=== PATIENT | male | born 1940 | race Caucasian/White ===

== ENCOUNTER 2023-11-02 16:52 | Inpatient (IN) ==
[2023-11-02] MEDS ORDERED: NS 250 ML IV 25 ML IV PRN (16:57)
[2023-11-02 21:00] VITALS: BMI 31.5
[2023-11-02 21:44] LABS: BASOPHILS % (AUTO) 0.3 % (0.2-1.0); EOSINOPHILS # (AUTO) 0.3 x10^3/uL (0.0-0.2); EOSINOPHILS % (AUTO) 2.8 % (0.9-2.9); HEMATOCRIT 35.6 % (42.0-54.0); HEMOGLOBIN 11.8 g/dL (13.5-18.0); LYMPHOCYTES # (AUTO) 0.8 X10^3/uL (1.3-2.9); LYMPHOCYTES % (AUTO) 7.9 % (21.0-51.0); MEAN CORPUSCULAR HEMOGLOBIN 29.9 pg (27.0-34.0); MEAN CORPUSCULAR HGB CONC 33.1 g/dL (33.0-35.0); MEAN CORPUSCULAR VOLUME 90.4 fL (80.0-100.0); MEAN PLATELET VOLUME 7.5 fL (7.4-11.0); MONOCYTES # (AUTO) 0.5 x10^3/uL (0.3-0.8); MONOCYTES % (AUTO) 4.7 % (0.0-13.0); NEUTROPHILS # (AUTO) 8.1 x10^3/uL (2.2-4.8); NEUTROPHILS % (AUTO) 84.3 % (42.0-75.0); PLATELET COUNT 211 X10^3/uL (150.0-450.0); RED BLOOD COUNT 3.94 X10^6/uL (4.7-6.0); RED CELL DISTRIBUTION WIDTH 15.3 % (11.6-16.5); WHITE BLOOD COUNT 9.6 X10^3/uL (3.6-10.0)
[2023-11-02] MEDS: D5 1/2 NS 1,000 ML 1,000 ML IV SCH (21:47)
[2023-11-02] MEDS: NovoLIN R (or HumuLIN R) SUBCUT PRN (21:48)
[2023-11-02 21:54] LABS: ALBUMIN 2.1 g/dL (3.4-5.0); CALCIUM 8.7 mg/dL (8.5-10.1); CARBON DIOXIDE 22.3 mmol/L (21-32); COR CA(FOR HYPOALB) 10.2 mg/dL (8.5-10.1); CREATININE 3.08 mg/dL (0.70-1.30); POTASSIUM 4.2 mmol/L (3.5-5.1); TOTAL PROTEIN 6.5 g/dL (6.4-8.2)
[2023-11-02] MEDS: ZOSYN VIAL 3.375 GRAMS 3.375 G in NS 100 ML IV 100 ML IV SCH (22:12)
[2023-11-03 05:35] LABS: BASOPHILS % (AUTO) 0.4 % (0.2-1.0); EOSINOPHILS # (AUTO) 0.3 x10^3/uL (0.0-0.2); EOSINOPHILS % (AUTO) 3.1 % (0.9-2.9); HEMATOCRIT 33.9 % (42.0-54.0); HEMOGLOBIN 11.2 g/dL (13.5-18.0); LYMPHOCYTES # (AUTO) 0.7 X10^3/uL (1.3-2.9); LYMPHOCYTES % (AUTO) 7.2 % (21.0-51.0); MEAN CORPUSCULAR HEMOGLOBIN 29.6 pg (27.0-34.0); MEAN CORPUSCULAR HGB CONC 32.9 g/dL (33.0-35.0); MEAN CORPUSCULAR VOLUME 89.9 fL (80.0-100.0); MEAN PLATELET VOLUME 7.2 fL (7.4-11.0); MONOCYTES # (AUTO) 0.6 x10^3/uL (0.3-0.8); MONOCYTES % (AUTO) 6.1 % (0.0-13.0); NEUTROPHILS # (AUTO) 7.8 x10^3/uL (2.2-4.8); NEUTROPHILS % (AUTO) 83.2 % (42.0-75.0); PLATELET COUNT 218 X10^3/uL (150.0-450.0); RED BLOOD COUNT 3.77 X10^6/uL (4.7-6.0); WHITE BLOOD COUNT 9.4 X10^3/uL (3.6-10.0)
[2023-11-03 05:45] LABS: ALBUMIN 1.9 g/dL (3.4-5.0); CALCIUM 8.5 mg/dL (8.5-10.1); CARBON DIOXIDE 23.6 mmol/L (21-32); COR CA(FOR HYPOALB) 10.2 mg/dL (8.5-10.1); POTASSIUM 3.9 mmol/L (3.5-5.1)
[2023-11-03] MEDS: HIBICLENS WASH EXT ONE (06:15)
--- NOTE | 2023-11-03 07:53 | EKG ---
Test Reason : scheduled surgery Blood Pressure : */* mmHG Vent. Rate : 85 BPM Atrial Rate : 85 BPM P-R Int : 166 ms QRS Dur : 140 ms QT Int : 416 ms P-R-T Axes : 53 -35 2 degrees QTc Int : 495 ms Normal sinus rhythm Left axis deviation Right bundle branch block Abnormal ECG No previous ECGs available Confirmed by Wilder Parekh MD ([id number] on 11/03/2023 6:27:44 PM Referred By: Confirmed By: Wilder Parekh MD
[2023-11-03] MEDS: NS 1,000 ML IV 1,000 ML ONE ×2 (08:09→18:02)
[2023-11-03] MEDS: KETAMINE HCL ONE (08:31)
[2023-11-03] MEDS: FENTANYL VIAL INJ 100 mcg ONE (08:31)
[2023-11-03] MEDS ORDERED: SUPRANE ONE (08:31)
[2023-11-03] MEDS: ZOFRAN INJ 4 MG VIAL ONE ×2 (08:31→11:59)
[2023-11-03] MEDS ORDERED: XYLOCAINE 2 % (PLAIN) ONE (08:31)
[2023-11-03] MEDS: BRIDION ONE (08:31)
[2023-11-03] MEDS: ZEMURON 100 MG VIAL ONE (08:31)
[2023-11-03] MEDS: VERSED ONE (08:31)
[2023-11-03] MEDS: AMIDATE INJ 40 MG VIAL ONE (08:31)
[2023-11-03] MEDS: PEPCID 20 MG VIAL ONE (08:31)
[2023-11-03] MEDS: BACTROBAN TOPICAL OINT ONE (08:55)
[2023-11-03] MEDS ORDERED: BARHEMSYS INJ IVP PRN (09:23)
[2023-11-03] MEDS ORDERED: BENADRYL INJ 50 MG VIAL IVP PRN (09:23)
[2023-11-03] MEDS ORDERED: REGLAN INJ 10 MG VIAL IVP PRN (09:23)
[2023-11-03] MEDS ORDERED: DILAUDID INJ IVP PRN (09:23)
[2023-11-03] MEDS ORDERED: ZOFRAN INJ 4 MG VIAL IVP PRN (09:23)
[2023-11-03] MEDS: MORPHINE SULFATE INJ 2 MG INJ IVP PRN (10:42)
[2023-11-03] MEDS ORDERED: LEVAQUIN PREMIX IV 750 MG 750 MG/150 ML BAG IV SCH ×2 (11:00)
[2023-11-03] MEDS ORDERED: LOVENOX INJ 30 MG SYR SC SCH (11:00)
[2023-11-03] MEDS ORDERED: MORPHINE SULFATE INJ 2 MG INJ IVP PRN (11:17)
--- NOTE | 2023-11-03 11:18 | RAD ---
EXAM:AP chestHISTORY:Preop appendicitisCOMPARISON:NoneFINDINGS:Hear t size normal. The right lung is clear. The left diaphragm is indistinct; parenchymal density in the left lower lobe may be present. Extensive surgical hardware fixation is noted in the spine.IMPRESSION:No definite abnormality. However, follow-up suggested to further evaluate possible abnormality in the left lower lung; there is no prior exam currently available for comparison.THIS IS AN ELECTRONICALLY VERIFIED FINAL REPORT11/03/2023 11:14 AM - Electronically signed by Shaun Orellana MD
[2023-11-03] MEDS: MORPHINE SULFATE INJ 2 MG INJ IVP ONE (11:58)
[2023-11-03] MEDS: ZOFRAN INJ 4 MG VIAL IVP PRN (12:07)
[2023-11-03] MEDS: LOVENOX INJ 40 MG SYR SC SCH (12:17)
[2023-11-03] MEDS: LEVAQUIN PREMIX IV 750 MG 750 MG/150 ML BAG IV SCH (12:20)
[2023-11-03] MEDS: DILAUDID INJ IVP PRN (16:00)
[2023-11-03] MEDS: TYLENOL 325 MG TAB PO PRN (17:01)
[2023-11-03] MEDS: SNACK - Diabetic Appropriate PO SCH (20:49)
[2023-11-03] MEDS: PROTONIX INJ 40 MG VIAL IVP SCH (21:09)
[2023-11-03] MEDS: LOPRESSOR TAB 50 MG PO SCH (21:09)
[2023-11-03] MEDS: NS 1,000 ML IV 1,000 ML IV SCH (21:22)
[2023-11-04 05:33] LABS: BASOPHILS % (AUTO) 0.3 % (0.2-1.0); EOSINOPHILS # (AUTO) 0.1 x10^3/uL (0.0-0.2); EOSINOPHILS % (AUTO) 1.2 % (0.9-2.9); HEMATOCRIT 33.3 % (42.0-54.0); LYMPHOCYTES # (AUTO) 0.5 X10^3/uL (1.3-2.9); LYMPHOCYTES % (AUTO) 8.4 % (21.0-51.0); MEAN CORPUSCULAR HEMOGLOBIN 29.8 pg (27.0-34.0); MEAN CORPUSCULAR VOLUME 90.2 fL (80.0-100.0); MEAN PLATELET VOLUME 7.4 fL (7.4-11.0); MONOCYTES # (AUTO) 0.4 x10^3/uL (0.3-0.8); MONOCYTES % (AUTO) 6.1 % (0.0-13.0); NEUTROPHILS # (AUTO) 5.5 x10^3/uL (2.2-4.8); PLATELET COUNT 185 X10^3/uL (150.0-450.0); RED BLOOD COUNT 3.69 X10^6/uL (4.7-6.0); RED CELL DISTRIBUTION WIDTH 15.3 % (11.6-16.5); WHITE BLOOD COUNT 6.5 X10^3/uL (3.6-10.0)
[2023-11-04 05:51] LABS: ALBUMIN 1.6 g/dL (3.4-5.0); CALCIUM 8.4 mg/dL (8.5-10.1); CARBON DIOXIDE 21.7 mmol/L (21-32); COR CA(FOR HYPOALB) 10.3 mg/dL (8.5-10.1); CREATININE 3.35 mg/dL (0.70-1.30); POTASSIUM 4.5 mmol/L (3.5-5.1); TOTAL PROTEIN 5.5 g/dL (6.4-8.2)
[2023-11-04] MEDS: NORCO 5/325 MG TAB PO PRN (08:52)
[2023-11-04] MEDS: FLOMAX PO SCH (08:53)
[2023-11-04] MEDS ORDERED: LOVENOX INJ 40 MG SYR SC SCH (09:00)
--- NOTE | 2023-11-04 09:10 | DR.CONSULT ---
CONSULT Consultation for Day of: Date: 11/03/23 Chief Complaint Chief Complaint: appendicitis Allergies Allergies Allergy/AdvReac Type Severity Reaction Status Date / Time No Known Allergies Allergy Verified 11/02/23 20:07 History of Present Illness History of Present Illness: Mr Cardenas is a 83y/o male who was admitted for acute appendicitis. He was evaluated by Dr Chawla and underwent appendectomy. He is currently on Zosyn + Levaquin. He is on clears. Medicine was consulted for management. He is currently doing well, pain is well-controlled. Labs/imaging: -WBC 9.4 Hgb 11.2 BUN/Cr: 47/3.0 Plan: continue diet as per surgery. Continue IVF and pain control. Continue IV antibiotics. Resume home medications. Continue SSI, change fluids to NS. Replace electrolytes as per protocol. Follow surgery recommendations. Monitor AM labs. Past Surgical History Surgical History: Other Family History Family Medical History: Diabetes Mellitus, Heart Failure and Hypertension Social History Does patient currently use any type of tobacco product: No Type of Tobacco Use: None Does any household member use tobacco: No Alcohol Use: None Drug Use: None Medications Home Medications: No Known Allergies Allergy (Verified 11/02/23 20:07) CONTINUE taking the following medications dapagliflozin propanediol 10 mg tablet (Farxiga) 10 mg PO QDAY 11/03/23 [History] ergocalciferol (vitamin D2) 1,250 mcg (50,000 unit) capsule 1,250 mcg PO QWEEK 11/03/23 [History] furosemide 40 mg tablet 40 mg PO BID 11/03/23 [History] glimepiride 4 mg tablet 4 mg PO BID 11/03/23 [History] hydrocodone 5 mg-acetaminophen 325 mg tablet 1 tab PO Q12H PRN 11/03/23 [History] insulin detemir U-100 100 unit/mL (3 mL) subcutaneous pen (Levemir FlexPen) 80 unit subcut QPM 11/03/23 [History] insulin lispro 100 unit/mL subcutaneous pen 10 unit subcut QPM 11/03/23 [History] metoprolol tartrate 50 mg tablet 50 mg PO BID 11/03/23 [History] midodrine 5 mg tablet 5 mg PO TID 11/03/23 [History] simvastatin 40 mg tablet 40 mg PO QDAY 11/03/23 [History] sitagliptin phosphate 50 mg tablet (Januvia) 50 mg PO QDAY 11/03/23 [History] tamsulosin 0.4 mg capsule 0.8 mg PO QDAY 11/03/23 [History] Review of Systems Constitutional: No Symptoms Reported Respiratory: No Symptoms Reported Cardiovascular: No Symptoms Reported Gastrointestinal: Abdominal Pain Genitourinary: No Symptoms Reported Musculoskeletal: No Symptoms Reported Skin: No Symptoms Reported Neurological: No Symptoms Reported Physical Exam Vital Signs: Vital Signs Temperature 98.5 F Temperature 98.1 F Temperature 98.4 F Temperature 98.2 F Temperature 98.0 F Temperature 98.0 F Pulse Rate [Right Radial] 105 Pulse Rate [Right Radial] 93 Pulse Rate [Right Radial] 81 Pulse Rate [Right Radial] 78 Pulse Rate [Right Radial] 78 Pulse Rate [Right Radial] 79 Pulse Rate 80 Pulse Rate 79 Pulse Rate 78 Pulse Rate 79 Pulse Rate 79 Pulse Rate 79 Pulse Rate 79 Respiratory Rate 18 Respiratory Rate 20 Respiratory Rate 20 Respiratory Rate 20 Respiratory Rate 20 Respiratory Rate 20 Respiratory Rate 20 Respiratory Rate 20 Respiratory Rate 20 Respiratory Rate 20 Respiratory Rate 18 Respiratory Rate 18 Respiratory Rate 18 Respiratory Rate 20 Respiratory Rate 20 Respiratory Rate 20 Respiratory Rate 20 Blood Pressure [Right Arm] 168/66 Blood Pressure [Right Arm] 135/94 Blood Pressure [Right Arm] 185/80 Blood Pressure [Right Arm] 171/78 Blood Pressure [Right Arm] 150/72 Blood Pressure [Right Arm] 186/80 Blood Pressure 169/71 Blood Pressure 169/70 Blood Pressure 146/67 Blood Pressure 164/69 Blood Pressure 153/67 Blood Pressure 139/63 Blood Pressure 134/72 O2 Sat by Pulse Oximetry 98 O2 Sat by Pulse Oximetry 98 O2 Sat by Pulse Oximetry 98 O2 Sat by Pulse Oximetry 99 O2 Sat by Pulse Oximetry 99 O2 Sat by Pulse Oximetry 97 O2 Sat by Pulse Oximetry 97 O2 Sat by Pulse Oximetry 97 O2 Sat by Pulse Oximetry 97 O2 Sat by Pulse Oximetry 99 O2 Sat by Pulse Oximetry 99 O2 Sat by Pulse Oximetry 98 O2 Sat by Pulse Oximetry 98 Oriented: Normal Eyes: Normal Throat: Normal Respiratory: Clear Throughout Cardiovascular: Normal Auscultation: Bowel Sounds: Normal Tenderness: RLQ and Mild Skin: Normal Musculoskeletal: Normal Psychiatric: Normal Mood Description: Calm Affect: Normal Speech Pattern: Clear Plan (1) Acute appendicitis: Status: Acute Qualifiers: Acute appendicitis type: unspecified acute appendicitis type Qualified Code(s): K35.80 - Unspecified acute appendicitis (2) Type 2 diabetes mellitus: Status: Acute Qualifiers: Diabetes mellitus complication status: with hyperglycemia Diabetes mellitus snf insulin use: with intermediate accountant use Qualified Code(s): E11.65 - Type 2 diabetes mellitus with hyperglycemia; Z79.4 - residential (current) use of insulin (3) Dehydration: Status: Acute
--- NOTE | 2023-11-04 10:26 | DR.PROGNOT ---
HOSPITAL PROGRESS NOTE Progress Note for Day of: Progress Note Date: 11/04/23 Chief Complaint Chief Complaint: Postoperative laparoscopic appendectomy day 1 Doing very well with less abdominal pain, no nausea or vomiting, tolerating clear liquid well. Moderate drainage in FREDDIE drain. WBC 6.5, normal electrolytes, BUN 43 and creatinine 3.35. Temperature 97.7 Abdomen is soft full with hypoactive bowel sounds. Past Medical Family Social History Allergies: Allergies No Known Allergies Allergy (Verified 11/02/23 20:07) Vital Signs Vital Signs: Vital Signs Temperature 97.5 F Temperature 97.7 F Pulse Rate [Right Radial] 75 Pulse Rate [Right Radial] 69 Respiratory Rate 20 Respiratory Rate 19 Respiratory Rate 20 Blood Pressure [Right Arm] 154/67 Blood Pressure [Right Arm] 143/65 O2 Sat by Pulse Oximetry 97 O2 Sat by Pulse Oximetry 96 Physical Exam Oriented: Normal Eyes: Normal Throat: Normal Cardiovascular: Normal GI:Auscultation: Normal GI: Tenderness: RLQ and Mild Skin: Normal Musculoskeletal: Normal Psychiatric: Normal Mood Description: Calm Affect: Normal Speech Pattern: Clear and Appropriate Laboratory and Diagnostics 11/04/23 05:15 11/04/23 05:15 Labs: Laboratory WBC 6.5 X10^3/uL (3.6-10.0) 11/04/23 05:15 RBC 3.69 X10^6/uL (4.7-6.0) L 11/04/23 05:15 Hgb 11.0 g/dL (13.5-18.0) L 11/04/23 05:15 Hct 33.3 % (42.0-54.0) L 11/04/23 05:15 MCV 90.2 fL (80.0-100.0) 11/04/23 05:15 MCH 29.8 pg (27.0-34.0) 11/04/23 05:15 MCHC 33.0 g/dL (33.0-35.0) 11/04/23 05:15 RDW 15.3 % (11.6-16.5) 11/04/23 05:15 Plt Count 185 X10^3/uL (150.0-450.0) 11/04/23 05:15 MPV 7.4 fL (7.4-11.0) 11/04/23 05:15 Neut % (Auto) 84.0 % (42.0-75.0) H 11/04/23 05:15 Lymph % (Auto) 8.4 % (21.0-51.0) L 11/04/23 05:15 [place] % (Auto) 6.1 % (0.0-13.0) 11/04/23 05:15 Eos % (Auto) 1.2 % (0.9-2.9) 11/04/23 05:15 Baso % (Auto) 0.3 % (0.2-1.0) 11/04/23 05:15 Neut # (Auto) 5.5 x10^3/uL (2.2-4.8) H 11/04/23 05:15 Lymph # (Auto) 0.5 X10^3/uL (1.3-2.9) L 11/04/23 05:15 [place] # (Auto) 0.4 x10^3/uL (0.3-0.8) 11/04/23 05:15 Eos # (Auto) 0.1 x10^3/uL (0.0-0.2) 11/04/23 05:15 Baso # (Auto) 0.0 X10^3/uL (0.0-0.1) 11/04/23 05:15 Absolute Nucleated RBC 0.0 /100WBC 11/04/23 05:15 Sodium 136 mmol/L (136-145) 11/04/23 05:15 Corrected Sodium 139 mmol/L (136-145) 11/04/23 05:15 Potassium 4.5 mmol/L (3.5-5.1) 11/04/23 05:15 Chloride 106 mmol/L (98-107) 11/04/23 05:15 Carbon Dioxide 21.7 mmol/L (21-32) 11/04/23 05:15 BUN 43 mg/dL (7-18) H 11/04/23 05:15 Creatinine 3.35 mg/dL (0.70-1.30) H 11/04/23 05:15 Est GFR (MDRD) Af Amer 23 (>60) L 11/04/23 05:15 Est GFR (MDRD) Non-Af 19 (>60) L 11/04/23 05:15 Glucose 211 mg/dL (65-99) H 11/04/23 05:15 POC Glucose (mg/dL) 181 mg/dL (65-99) H 11/04/23 05:22 Calcium 8.4 mg/dL (8.5-10.1) L 11/04/23 05:15 Corrected Calcium 10.3 mg/dL (8.5-10.1) H 11/04/23 05:15 Total Bilirubin 0.30 mg/dL (0.2-1.0) 11/04/23 05:15 AST 17 Units/L (15-37) 11/04/23 05:15 ALT 18 Units/L (12-78) 11/04/23 05:15 Alkaline Phosphatase 46 Units/L (46-116) 11/04/23 05:15 Total Protein 5.5 g/dL (6.4-8.2) L 11/04/23 05:15 Albumin 1.6 g/dL (3.4-5.0) L 11/04/23 05:15 Globulin 3.9 g/dL (2.5-4.5) 11/04/23 05:15 Albumin/Globulin Ratio 0.4 Ratio (1.1-2.1) L 11/04/23 05:15 Assessment and Plan 1: Acute gangrenous appendicitis with perforation and abscess formation right lower quadrant, status post appendectomy and drainage. Same postoperative care, out of bed, incentive spirometer, DVT prophylaxis, IV fluid and IV antibiotics. Full liquid diet
--- NOTE | 2023-11-04 11:18 | PCM.PROG ---
Progress Note Progress Note for Day of Date of Exam: 11/04/23 Subjective Subjective: Mr Cardenas is a 83y/o male s/p appendectomy. He is currently on Zosyn + Levaquin. Medicine was consulted for management. He is currently doing well, pain is well-controlled. Yesterday, he did spike a fever. Blood cultures pending. Labs/imaging: -WBC 6.5, Hgb 11, Plt 185, -Na 136, K 4.5, Creatinine 3.35, Glucose 211 Plan: continue diet as per surgery advancing to full liquid. Continue IVF and pain control. Continue IV antibiotics. Home medications have been resumed. Continue SSI. Replace electrolytes as per protocol. Follow surgery recommendations. Will stop levaquin. Monitor AM labs. Past Medical Family Social History Allergies: Allergies No Known Allergies Allergy (Verified 11/02/23 20:07) Review of Systems ROS changes noted: see HPI Vital Signs and I&O's Vital Signs: Vital Signs Temperature 97.5 F Temperature 97.7 F Pulse Rate [Right Radial] 75 Pulse Rate [Right Radial] 69 Respiratory Rate 20 Respiratory Rate 19 Respiratory Rate 20 Blood Pressure [Right Arm] 154/67 Blood Pressure [Right Arm] 143/65 O2 Sat by Pulse Oximetry 97 O2 Sat by Pulse Oximetry 96 Intake and Output: Intake & Output 11/01/23 11/02/23 11/03/23 11/04/23 23:59 23:59 23:59 23:59 Intake Total 222 / 222 3163 / 3163 740 / 740 Output Total 1978 / 1978 50 / 50 Balance 222 / 222 1184 / 1184 690 / 690 Physical Exam Oriented: Normal Eyes: Normal Throat: Normal Respiratory: Normal Cardiovascular: Normal Auscultation: Bowel Sounds: Normal Tenderness: RLQ and Mild Skin: Normal Musculoskeletal: Normal Psychiatric: Normal Mood Description: Calm Affect: Normal Speech Pattern: Clear and Appropriate Laboratory and Diagnostics 11/04/23 05:15 11/04/23 05:15 Labs: Laboratory WBC 6.5 X10^3/uL (3.6-10.0) 11/04/23 05:15 RBC 3.69 X10^6/uL (4.7-6.0) L 11/04/23 05:15 Hgb 11.0 g/dL (13.5-18.0) L 11/04/23 05:15 Hct 33.3 % (42.0-54.0) L 11/04/23 05:15 MCV 90.2 fL (80.0-100.0) 11/04/23 05:15 MCH 29.8 pg (27.0-34.0) 11/04/23 05:15 MCHC 33.0 g/dL (33.0-35.0) 11/04/23 05:15 RDW 15.3 % (11.6-16.5) 11/04/23 05:15 Plt Count 185 X10^3/uL (150.0-450.0) 11/04/23 05:15 MPV 7.4 fL (7.4-11.0) 11/04/23 05:15 Neut % (Auto) 84.0 % (42.0-75.0) H 11/04/23 05:15 Lymph % (Auto) 8.4 % (21.0-51.0) L 11/04/23 05:15 [place] % (Auto) 6.1 % (0.0-13.0) 11/04/23 05:15 Eos % (Auto) 1.2 % (0.9-2.9) 11/04/23 05:15 Baso % (Auto) 0.3 % (0.2-1.0) 11/04/23 05:15 Neut # (Auto) 5.5 x10^3/uL (2.2-4.8) H 11/04/23 05:15 Lymph # (Auto) 0.5 X10^3/uL (1.3-2.9) L 11/04/23 05:15 [place] # (Auto) 0.4 x10^3/uL (0.3-0.8) 11/04/23 05:15 Eos # (Auto) 0.1 x10^3/uL (0.0-0.2) 11/04/23 05:15 Baso # (Auto) 0.0 X10^3/uL (0.0-0.1) 11/04/23 05:15 Absolute Nucleated RBC 0.0 /100WBC 11/04/23 05:15 Sodium 136 mmol/L (136-145) 11/04/23 05:15 Corrected Sodium 139 mmol/L (136-145) 11/04/23 05:15 Potassium 4.5 mmol/L (3.5-5.1) 11/04/23 05:15 Chloride 106 mmol/L (98-107) 11/04/23 05:15 Carbon Dioxide 21.7 mmol/L (21-32) 11/04/23 05:15 BUN 43 mg/dL (7-18) H 11/04/23 05:15 Creatinine 3.35 mg/dL (0.70-1.30) H 11/04/23 05:15 Est GFR (MDRD) Af Amer 23 (>60) L 11/04/23 05:15 Est GFR (MDRD) Non-Af 19 (>60) L 11/04/23 05:15 Glucose 211 mg/dL (65-99) H 11/04/23 05:15 POC Glucose (mg/dL) 181 mg/dL (65-99) H 11/04/23 05:22 Calcium 8.4 mg/dL (8.5-10.1) L 11/04/23 05:15 Corrected Calcium 10.3 mg/dL (8.5-10.1) H 11/04/23 05:15 Total Bilirubin 0.30 mg/dL (0.2-1.0) 11/04/23 05:15 AST 17 Units/L (15-37) 11/04/23 05:15 ALT 18 Units/L (12-78) 11/04/23 05:15 Alkaline Phosphatase 46 Units/L (46-116) 11/04/23 05:15 Total Protein 5.5 g/dL (6.4-8.2) L 11/04/23 05:15 Albumin 1.6 g/dL (3.4-5.0) L 11/04/23 05:15 Globulin 3.9 g/dL (2.5-4.5) 11/04/23 05:15 Albumin/Globulin Ratio 0.4 Ratio (1.1-2.1) L 11/04/23 05:15 Plan (1) Acute appendicitis: Status: Acute Qualifiers: Acute appendicitis type: unspecified acute appendicitis type Qualified Code(s): K35.80 - Unspecified acute appendicitis (2) Type 2 diabetes mellitus: Status: Acute Qualifiers: Diabetes mellitus ad terminal makeup operator insulin use: with chcf use Diabetes mellitus complication status: with hyperglycemia Qualified Code(s): E11.65 - Type 2 diabetes mellitus with hyperglycemia; Z79.4 - nursing home (current) use of insulin (3) Dehydration: Status: Acute
[2023-11-04] MEDS ORDERED: NORCO 5/325 MG TAB PO PRN (12:26)
[2023-11-05] MEDS: NORCO 10/325 TAB PO PRN (00:23)
[2023-11-05 06:17] LABS: BASOPHILS # (AUTO) 0.1 X10^3/uL (0.0-0.1); BASOPHILS % (AUTO) 0.7 % (0.2-1.0); EOSINOPHILS # (AUTO) 0.5 x10^3/uL (0.0-0.2); LYMPHOCYTES # (AUTO) 1.7 X10^3/uL (1.3-2.9); LYMPHOCYTES % (AUTO) 11.9 % (21.0-51.0); MEAN CORPUSCULAR VOLUME 90.1 fL (80.0-100.0)
[2023-11-05 06:20] LABS: EOSINOPHILS % (AUTO) 3.2 % (0.9-2.9); HEMATOCRIT 30.6 % (42.0-54.0); HEMOGLOBIN 10.1 g/dL (13.5-18.0); MEAN CORPUSCULAR HEMOGLOBIN 29.6 pg (27.0-34.0); MEAN CORPUSCULAR HGB CONC 32.8 g/dL (33.0-35.0); MEAN PLATELET VOLUME 8.2 fL (7.4-11.0); MONOCYTES # (AUTO) 0.8 x10^3/uL (0.3-0.8); NEUTROPHILS # (AUTO) 10.9 x10^3/uL (2.2-4.8); NEUTROPHILS % (AUTO) 78.2 % (42.0-75.0); PLATELET COUNT 218 X10^3/uL (150.0-450.0)
[2023-11-05 06:28] LABS: ALBUMIN 1.8 g/dL (3.4-5.0); CALCIUM 8.5 mg/dL (8.5-10.1); CARBON DIOXIDE 21.8 mmol/L (21-32); COR CA(FOR HYPOALB) 10.3 mg/dL (8.5-10.1); CREATININE 3.15 mg/dL (0.70-1.30); POTASSIUM 4.2 mmol/L (3.5-5.1)
[2023-11-05 06:50] LABS: WHITE BLOOD COUNT 16.3 X10^3/uL (3.6-10.0)
[2023-11-05 06:56] LABS: PLATELET MORPHOLOGY COMMENT NORMAL (NORMAL)
--- NOTE | 2023-11-05 10:03 | DR.PROGNOT ---
HOSPITAL PROGRESS NOTE Progress Note for Day of: Progress Note Date: 11/05/23 Chief Complaint Chief Complaint: Postoperative laparoscopic appendectomy day 2 Doing very well with less abdominal pain, no nausea or vomiting, tolerating clear liquid well. Moderate drainage in FREDDIE drain. WBC 16.3, normal electrolytes, BUN 37 and creatinine 3.45. Temperature 97.7 Abdomen is soft full with hypoactive bowel sounds. Past Medical Family Social History Allergies: Allergies No Known Allergies Allergy (Verified 11/02/23 20:07) Review Of Systems Changes in ROS: see HPI Vital Signs Vital Signs: Vital Signs Temperature 98.3 F Pulse Rate [Right Radial] 72 Respiratory Rate 18 Blood Pressure [Right Arm] 178/64 O2 Sat by Pulse Oximetry 92 Physical Exam Oriented: Normal Eyes: Normal Throat: Normal Respiratory: Normal Cardiovascular: Normal GI:Auscultation: Normal GI: Tenderness: RLQ and Mild Skin: Normal Musculoskeletal: Normal Psychiatric: Normal Mood Description: Calm Affect: Normal Speech Pattern: Clear and Appropriate Laboratory and Diagnostics 11/05/23 05:18 11/05/23 05:18 Labs: Laboratory WBC 16.3 X10^3/uL (3.6-10.0) H D 11/05/23 05:18 RBC 3.40 X10^6/uL (4.7-6.0) L 11/05/23 05:18 Hgb 10.1 g/dL (13.5-18.0) L 11/05/23 05:18 Hct 30.6 % (42.0-54.0) L 11/05/23 05:18 MCV 90.1 fL (80.0-100.0) 11/05/23 05:18 MCH 29.6 pg (27.0-34.0) 11/05/23 05:18 MCHC 32.8 g/dL (33.0-35.0) L 11/05/23 05:18 RDW 15.0 % (11.6-16.5) 11/05/23 05:18 Plt Count 218 X10^3/uL (150.0-450.0) 11/05/23 05:18 Plt Count Comment Adequate (ADEQUATE) 11/05/23 05:18 MPV 8.2 fL (7.4-11.0) 11/05/23 05:18 Neut % (Auto) 78.2 % (42.0-75.0) H 11/05/23 05:18 Lymph % (Auto) 11.9 % (21.0-51.0) L 11/05/23 05:18 [place] % (Auto) 6.0 % (0.0-13.0) 11/05/23 05:18 Eos % (Auto) 3.2 % (0.9-2.9) H 11/05/23 05:18 Baso % (Auto) 0.7 % (0.2-1.0) 11/05/23 05:18 Neut # (Auto) 10.9 x10^3/uL (2.2-4.8) H 11/05/23 05:18 Lymph # (Auto) 1.7 X10^3/uL (1.3-2.9) 11/05/23 05:18 [place] # (Auto) 0.8 x10^3/uL (0.3-0.8) 11/05/23 05:18 Eos # (Auto) 0.5 x10^3/uL (0.0-0.2) H 11/05/23 05:18 Baso # (Auto) 0.1 X10^3/uL (0.0-0.1) 11/05/23 05:18 Absolute Nucleated RBC 0.1 /100WBC 11/05/23 05:18 Plt Morphology Comment Normal (NORMAL) 11/05/23 05:18 RBC Morphology Normal (NORMAL) 11/05/23 05:18 Sodium 136 mmol/L (136-145) 11/05/23 05:18 Corrected Sodium 139 mmol/L (136-145) 11/05/23 05:18 Potassium 4.2 mmol/L (3.5-5.1) 11/05/23 05:18 Chloride 105 mmol/L (98-107) 11/05/23 05:18 Carbon Dioxide 21.8 mmol/L (21-32) 11/05/23 05:18 BUN 37 mg/dL (7-18) H 11/05/23 05:18 Creatinine 3.15 mg/dL (0.70-1.30) H 11/05/23 05:18 Est GFR (MDRD) Af Amer 25 (>60) L 11/05/23 05:18 Est GFR (MDRD) Non-Af 20 (>60) L 11/05/23 05:18 Glucose 220 mg/dL (65-99) H 11/05/23 05:18 POC Glucose (mg/dL) 186 mg/dL (65-99) H 11/05/23 05:47 Calcium 8.5 mg/dL (8.5-10.1) 11/05/23 05:18 Corrected Calcium 10.3 mg/dL (8.5-10.1) H 11/05/23 05:18 Total Bilirubin 0.20 mg/dL (0.2-1.0) 11/05/23 05:18 AST 21 Units/L (15-37) 11/05/23 05:18 ALT 22 Units/L (12-78) 11/05/23 05:18 Alkaline Phosphatase 52 Units/L (46-116) 11/05/23 05:18 Total Protein 6.0 g/dL (6.4-8.2) L 11/05/23 05:18 Albumin 1.8 g/dL (3.4-5.0) L 11/05/23 05:18 Globulin 4.2 g/dL (2.5-4.5) 11/05/23 05:18 Albumin/Globulin Ratio 0.4 Ratio (1.1-2.1) L 11/05/23 05:18 Assessment and Plan 1: Acute gangrenous appendicitis with perforation and abscess formation right lower quadrant, status post appendectomy and drainage. Same postoperative care, out of bed, incentive spirometer, DVT prophylaxis, IV fluid and IV antibiotics. soft diet ..
--- NOTE | 2023-11-05 11:28 | PCM.PROG ---
Progress Note Progress Note for Day of Date of Exam: 11/05/23 Subjective Subjective: Patient seen at bedside, no acute events overnight. He reports doing ok, abdominal pain has been stable. Dr Chawla advanced his diet to soft diet. He does report coughing up more with some clear sputum. Labs/imaging: -WBC 16.3 , Hgb 10.1, Plt 218 -Na 136, K 4.2, Creatinine 3.15, Glucose 186 Plan: Repeat CXR. Continue diet as per surgery advancing to soft. Continue IVF and pain control. Continue IV antibiotics. Add nebs. Continue IS. Continue home medications. Continue SSI. Replace electrolytes as per protocol. Follow surgery recommendations. Monitor AM labs. Past Medical Family Social History Allergies: Allergies No Known Allergies Allergy (Verified 11/02/23 20:07) Vital Signs and I&O's Vital Signs: Vital Signs Temperature 98.3 F Pulse Rate [Right Radial] 72 Respiratory Rate 18 Blood Pressure [Right Arm] 178/64 O2 Sat by Pulse Oximetry 92 Intake and Output: Intake & Output 11/02/23 11/03/23 11/04/23 11/05/23 23:59 23:59 23:59 23:59 Intake Total 222 / 222 3163 / 3163 2721 / 2721 1488 / 1488 Output Total 1978 / 1978 330 / 330 695 / 695 Balance 222 / 222 1184 / 1184 2391 / 2391 793 / 793 Physical Exam Oriented: Normal Eyes: Normal Throat: Normal Respiratory: Generalized and Diminished Cardiovascular: Normal Auscultation: Bowel Sounds: Normal Palpation: Normal Tenderness: RLQ and Mild Skin: Normal Musculoskeletal: Normal Psychiatric: Normal Mood Description: Calm Affect: Normal Speech Pattern: Clear and Appropriate Laboratory and Diagnostics 11/05/23 05:18 11/05/23 05:18 Labs: Laboratory WBC 16.3 X10^3/uL (3.6-10.0) H D 11/05/23 05:18 RBC 3.40 X10^6/uL (4.7-6.0) L 11/05/23 05:18 Hgb 10.1 g/dL (13.5-18.0) L 11/05/23 05:18 Hct 30.6 % (42.0-54.0) L 11/05/23 05:18 MCV 90.1 fL (80.0-100.0) 11/05/23 05:18 MCH 29.6 pg (27.0-34.0) 11/05/23 05:18 MCHC 32.8 g/dL (33.0-35.0) L 11/05/23 05:18 RDW 15.0 % (11.6-16.5) 11/05/23 05:18 Plt Count 218 X10^3/uL (150.0-450.0) 11/05/23 05:18 Plt Count Comment Adequate (ADEQUATE) 11/05/23 05:18 MPV 8.2 fL (7.4-11.0) 11/05/23 05:18 Neut % (Auto) 78.2 % (42.0-75.0) H 11/05/23 05:18 Lymph % (Auto) 11.9 % (21.0-51.0) L 11/05/23 05:18 [place] % (Auto) 6.0 % (0.0-13.0) 11/05/23 05:18 Eos % (Auto) 3.2 % (0.9-2.9) H 11/05/23 05:18 Baso % (Auto) 0.7 % (0.2-1.0) 11/05/23 05:18 Neut # (Auto) 10.9 x10^3/uL (2.2-4.8) H 11/05/23 05:18 Lymph # (Auto) 1.7 X10^3/uL (1.3-2.9) 11/05/23 05:18 [place] # (Auto) 0.8 x10^3/uL (0.3-0.8) 11/05/23 05:18 Eos # (Auto) 0.5 x10^3/uL (0.0-0.2) H 11/05/23 05:18 Baso # (Auto) 0.1 X10^3/uL (0.0-0.1) 11/05/23 05:18 Absolute Nucleated RBC 0.1 /100WBC 11/05/23 05:18 Plt Morphology Comment Normal (NORMAL) 11/05/23 05:18 RBC Morphology Normal (NORMAL) 11/05/23 05:18 Sodium 136 mmol/L (136-145) 11/05/23 05:18 Corrected Sodium 139 mmol/L (136-145) 11/05/23 05:18 Potassium 4.2 mmol/L (3.5-5.1) 11/05/23 05:18 Chloride 105 mmol/L (98-107) 11/05/23 05:18 Carbon Dioxide 21.8 mmol/L (21-32) 11/05/23 05:18 BUN 37 mg/dL (7-18) H 11/05/23 05:18 Creatinine 3.15 mg/dL (0.70-1.30) H 11/05/23 05:18 Est GFR (MDRD) Af Amer 25 (>60) L 11/05/23 05:18 Est GFR (MDRD) Non-Af 20 (>60) L 11/05/23 05:18 Glucose 220 mg/dL (65-99) H 11/05/23 05:18 POC Glucose (mg/dL) 186 mg/dL (65-99) H 11/05/23 05:47 Calcium 8.5 mg/dL (8.5-10.1) 11/05/23 05:18 Corrected Calcium 10.3 mg/dL (8.5-10.1) H 11/05/23 05:18 Total Bilirubin 0.20 mg/dL (0.2-1.0) 11/05/23 05:18 AST 21 Units/L (15-37) 11/05/23 05:18 ALT 22 Units/L (12-78) 11/05/23 05:18 Alkaline Phosphatase 52 Units/L (46-116) 11/05/23 05:18 Total Protein 6.0 g/dL (6.4-8.2) L 11/05/23 05:18 Albumin 1.8 g/dL (3.4-5.0) L 11/05/23 05:18 Globulin 4.2 g/dL (2.5-4.5) 11/05/23 05:18 Albumin/Globulin Ratio 0.4 Ratio (1.1-2.1) L 11/05/23 05:18 Plan (1) Bronchitis: Status: Acute (2) Acute appendicitis: Status: Acute Qualifiers: Acute appendicitis type: unspecified acute appendicitis type Qualified Code(s): K35.80 - Unspecified acute appendicitis (3) Type 2 diabetes mellitus: Status: Acute Qualifiers: Diabetes mellitus complication status: with hyperglycemia Diabetes mellitus mcc insulin use: with mcc use Qualified Code(s): E11.65 - Type 2 diabetes mellitus with hyperglycemia; Z79.4 - jail (current) use of insulin (4) Dehydration: Status: Acute
--- NOTE | 2023-11-05 13:06 | RAD ---
EXAM:CHEST, 1 VIEWHISTORY:F/U PREV CXR, ELEVATED WBC; F/U PREV CXRCOMPARISON:Prior study or studies were utilized for comparison during interpretation with the most relevant dated 11/02/2023TECHNIQUE:CHEST, 1 VIEWFINDINGS:Chest:Lines and tubes: NoneMediastinum: Cardiac and mediastinal shadow is within normal limits for size and contour.Pulmonary vessels: No pulmonary vascular congestion.Lung cintron: No suspicious airspace opacity.Pleura: No effusion. No pneumothorax.Bones and soft tissues: No acute osseous or soft tissue abnormality. Long segment spinal fusion hardware is visualized.IMPRESSION:1. No acute cardiopulmonary abnormalityTHIS IS AN ELECTRONICALLY VERIFIED FINAL REPORT11/05/2023 1:03 PM - Electronically signed by Jay Skaggs MD
[2023-11-05] MEDS: DUONEB 0.5 MG/3 MG (3 mL) NEB SCH (13:30)
[2023-11-05] MEDS: PULMICORT NEB TX 0.5 MG NEB SCH (20:44)
[2023-11-06 06:25] LABS: BASOPHILS # (AUTO) 0.1 X10^3/uL (0.0-0.1); BASOPHILS % (AUTO) 0.9 % (0.2-1.0); EOSINOPHILS # (AUTO) 0.2 x10^3/uL (0.0-0.2); EOSINOPHILS % (AUTO) 3.1 % (0.9-2.9); HEMATOCRIT 29.6 % (42.0-54.0); HEMOGLOBIN 9.8 g/dL (13.5-18.0); MEAN CORPUSCULAR HEMOGLOBIN 29.9 pg (27.0-34.0); MEAN CORPUSCULAR HGB CONC 33.2 g/dL (33.0-35.0); MEAN CORPUSCULAR VOLUME 90.1 fL (80.0-100.0); MEAN PLATELET VOLUME 7.5 fL (7.4-11.0); MONOCYTES # (AUTO) 0.6 x10^3/uL (0.3-0.8); MONOCYTES % (AUTO) 7.7 % (0.0-13.0); NEUTROPHILS # (AUTO) 5.5 x10^3/uL (2.2-4.8); NEUTROPHILS % (AUTO) 74.3 % (42.0-75.0); PLATELET COUNT 232 X10^3/uL (150.0-450.0); RED BLOOD COUNT 3.29 X10^6/uL (4.7-6.0); RED CELL DISTRIBUTION WIDTH 14.9 % (11.6-16.5); WHITE BLOOD COUNT 7.5 X10^3/uL (3.6-10.0)
[2023-11-06 06:31] LABS: ALBUMIN 1.7 g/dL (3.4-5.0); CALCIUM 8.5 mg/dL (8.5-10.1); CARBON DIOXIDE 21.1 mmol/L (21-32); COR CA(FOR HYPOALB) 10.3 mg/dL (8.5-10.1); CREATININE 2.97 mg/dL (0.70-1.30); POTASSIUM 4.2 mmol/L (3.5-5.1); TOTAL PROTEIN 5.7 g/dL (6.4-8.2)
[2023-11-06 06:55] LABS: BAND NEUTROPHILS % 11 % (0-10); PLATELET MORPHOLOGY COMMENT NORMAL (NORMAL)
[2023-11-06] MEDS: ZOCOR TAB 40 MG PO SCH (10:06)
--- NOTE | 2023-11-06 10:45 | PCM.PROG ---
Progress Note Progress Note for Day of Date of Exam: 11/06/23 Subjective Subjective: Patient seen at bedside, no acute events overnight. He reports doing well, abdominal pain is stable. He has been tolerating PO intake. Denies N/V/D. His BP has been elevated during this admission. He reports having a hx of low BP and was taking midodrine. He has not been getting that here while admitted. He does monitor his BP at home. CXR yesterday did not show any acute process. Labs/imaging: -WBC 7.5, Hgb 9.8, Plt 232 BUN/Cr: 31/2.97 Plan: follow surgery recommendations, discharge today. Advised patient to stop midodrine until seen by PCP, monitor BP at home. Continue diet as per surgery. F/U with Dr BRYANT and PCP as scheduled. Past Medical Family Social History Allergies: Allergies No Known Allergies Allergy (Verified 11/02/23 20:07) Vital Signs and I&O's Vital Signs: Vital Signs Temperature 98.3 F Temperature 98.6 F Pulse Rate [Right Radial] 76 Pulse Rate [Right Radial] 79 Pulse Rate 79 Respiratory Rate 20 Respiratory Rate 20 Respiratory Rate 18 Blood Pressure [Right Arm] 180/88 Blood Pressure [Right Arm] 176/74 O2 Sat by Pulse Oximetry 96 O2 Sat by Pulse Oximetry 95 O2 Sat by Pulse Oximetry 95 Intake and Output: Intake & Output 11/03/23 11/04/23 11/05/23 11/06/23 23:59 23:59 23:59 23:59 Intake Total 3163 / 3163 2721 / 2721 3166 / 3166 1549 / 1549 Output Total 1978 / 1978 330 / 330 1305 / 1305 505 / 505 Balance 1184 / 1184 2391 / 2391 1861 / 1861 1044 / 1044 Physical Exam Oriented: Normal Eyes: Normal Throat: Normal Respiratory: Generalized and Diminished Cardiovascular: Normal Auscultation: Bowel Sounds: Normal Palpation: Normal Tenderness: RLQ and Mild Skin: Normal Musculoskeletal: Normal Psychiatric: Normal Mood Description: Calm Affect: Normal Speech Pattern: Clear and Appropriate Laboratory and Diagnostics 11/06/23 05:30 11/06/23 05:30 Labs: 11/03/23 17:31 Blood Blood Culture - Preliminary 11/03/23 17:15 Blood Blood Culture - Preliminary Laboratory WBC 7.5 X10^3/uL (3.6-10.0) D 11/06/23 05:30 RBC 3.29 X10^6/uL (4.7-6.0) L 11/06/23 05:30 Hgb 9.8 g/dL (13.5-18.0) L 11/06/23 05:30 Hct 29.6 % (42.0-54.0) L 11/06/23 05:30 MCV 90.1 fL (80.0-100.0) 11/06/23 05:30 MCH 29.9 pg (27.0-34.0) 11/06/23 05:30 MCHC 33.2 g/dL (33.0-35.0) 11/06/23 05:30 RDW 14.9 % (11.6-16.5) 11/06/23 05:30 Plt Count 232 X10^3/uL (150.0-450.0) 11/06/23 05:30 Plt Count Comment Adequate (ADEQUATE) 11/06/23 05:30 MPV 7.5 fL (7.4-11.0) 11/06/23 05:30 Neut % (Auto) 74.3 % (42.0-75.0) 11/06/23 05:30 Lymph % (Auto) 14.0 % (21.0-51.0) L 11/06/23 05:30 [place] % (Auto) 7.7 % (0.0-13.0) 11/06/23 05:30 Eos % (Auto) 3.1 % (0.9-2.9) H 11/06/23 05:30 Baso % (Auto) 0.9 % (0.2-1.0) 11/06/23 05:30 Neut # (Auto) 5.5 x10^3/uL (2.2-4.8) H 11/06/23 05:30 Lymph # (Auto) 1.0 X10^3/uL (1.3-2.9) L 11/06/23 05:30 [place] # (Auto) 0.6 x10^3/uL (0.3-0.8) 11/06/23 05:30 Eos # (Auto) 0.2 x10^3/uL (0.0-0.2) 11/06/23 05:30 Baso # (Auto) 0.1 X10^3/uL (0.0-0.1) 11/06/23 05:30 Absolute Nucleated RBC 0.0 /100WBC 11/06/23 05:30 Total Counted 100 11/06/23 05:30 Neutrophils % (Manual) 66 % (39-76) 11/06/23 05:30 Band Neutrophils % 11 % (0-10) H 11/06/23 05:30 Lymphocytes % (Manual) 14 % (13-43) 11/06/23 05:30 Monocytes % (Manual) 5 % (4-9) 11/06/23 05:30 Eosinophils % (Manual) 4 % (0-6) 11/06/23 05:30 Atypical Lymphocytes Few 11/06/23 05:30 Plt Morphology Comment Normal (NORMAL) 11/06/23 05:30 RBC Morphology Normal (NORMAL) 11/06/23 05:30 Sodium 139 mmol/L (136-145) 11/06/23 05:30 Corrected Sodium 143 mmol/L (136-145) 11/06/23 05:30 Potassium 4.2 mmol/L (3.5-5.1) 11/06/23 05:30 Chloride 106 mmol/L (98-107) 11/06/23 05:30 Carbon Dioxide 21.1 mmol/L (21-32) 11/06/23 05:30 BUN 31 mg/dL (7-18) H 11/06/23 05:30 Creatinine 2.97 mg/dL (0.70-1.30) H 11/06/23 05:30 Est GFR (MDRD) Af Amer 26 (>60) L 11/06/23 05:30 Est GFR (MDRD) Non-Af 22 (>60) L 11/06/23 05:30 Glucose 265 mg/dL (65-99) H 11/06/23 05:30 POC Glucose (mg/dL) 238 mg/dL (65-99) H 11/06/23 05:22 Calcium 8.5 mg/dL (8.5-10.1) 11/06/23 05:30 Corrected Calcium 10.3 mg/dL (8.5-10.1) H 11/06/23 05:30 Total Bilirubin 0.10 mg/dL (0.2-1.0) L 11/06/23 05:30 AST 16 Units/L (15-37) 11/06/23 05:30 ALT 18 Units/L (12-78) 11/06/23 05:30 Alkaline Phosphatase 50 Units/L (46-116) 11/06/23 05:30 Total Protein 5.7 g/dL (6.4-8.2) L 11/06/23 05:30 Albumin 1.7 g/dL (3.4-5.0) L 11/06/23 05:30 Globulin 4.0 g/dL (2.5-4.5) 11/06/23 05:30 Albumin/Globulin Ratio 0.4 Ratio (1.1-2.1) L 11/06/23 05:30 Plan (1) Bronchitis: Status: Acute (2) Acute appendicitis: Status: Acute Qualifiers: Acute appendicitis type: unspecified acute appendicitis type Qualified Code(s): K35.80 - Unspecified acute appendicitis (3) Type 2 diabetes mellitus: Status: Acute Qualifiers: Diabetes mellitus senior living insulin use: with senior living use Diabetes mellitus complication status: with hyperglycemia Qualified Code(s): E11.65 - Type 2 diabetes mellitus with hyperglycemia; Z79.4 - extermination inspector (current) use of insulin (4) Dehydration: Status: Acute
[2023-11-06] MEDS: ZOFRAN TAB 4 MG SL PRN (12:38)
[2023-11-06] MEDS: CIPRO TAB 500 MG PO SCH (20:36)
[2023-11-06] MEDS: PROTONIX TAB 40 MG PO SCH (20:36)
[2023-11-07 06:46] LABS: BASOPHILS # (AUTO) 0.1 X10^3/uL (0.0-0.1); EOSINOPHILS # (AUTO) 0.3 x10^3/uL (0.0-0.2); LYMPHOCYTES # (AUTO) 1.3 X10^3/uL (1.3-2.9); MEAN CORPUSCULAR VOLUME 89.1 fL (80.0-100.0); MONOCYTES # (AUTO) 0.8 x10^3/uL (0.3-0.8)
[2023-11-07 06:48] LABS: BASOPHILS % (AUTO) 0.9 % (0.2-1.0); EOSINOPHILS % (AUTO) 2.3 % (0.9-2.9); HEMATOCRIT 33.7 % (42.0-54.0); HEMOGLOBIN 11.1 g/dL (13.5-18.0); MEAN CORPUSCULAR HEMOGLOBIN 29.5 pg (27.0-34.0); MEAN PLATELET VOLUME 7.9 fL (7.4-11.0); MONOCYTES % (AUTO) 6.9 % (0.0-13.0); NEUTROPHILS # (AUTO) 9.5 x10^3/uL (2.2-4.8); NEUTROPHILS % (AUTO) 78.9 % (42.0-75.0); PLATELET COUNT 298 X10^3/uL (150.0-450.0); RED BLOOD COUNT 3.78 X10^6/uL (4.7-6.0); RED CELL DISTRIBUTION WIDTH 15.2 % (11.6-16.5)
[2023-11-07 06:56] LABS: BAND NEUTROPHILS % 4 % (0-10); PLATELET MORPHOLOGY COMMENT NORMAL (NORMAL)
[2023-11-07 07:07] LABS: CALCIUM 8.9 mg/dL (8.5-10.1); CARBON DIOXIDE 21.6 mmol/L (21-32); COR CA(FOR HYPOALB) 10.5 mg/dL (8.5-10.1); CREATININE 2.69 mg/dL (0.70-1.30); POTASSIUM 3.7 mmol/L (3.5-5.1); TOTAL PROTEIN 6.2 g/dL (6.4-8.2)
[2023-11-07] MEDS ORDERED: CONSULT PHARMACY - POTASSIUM & MAGNESIUM XX SCH (08:00)
[2023-11-07] MEDS: PHENERGAN INJ 25 MG IM PRN (08:33)
[2023-11-07] MEDS: MICRO K EXTEN CAP 10 MEQ PO SCH (08:54)
--- NOTE | 2023-11-07 10:41 | PCM.PROG ---
Progress Note Progress Note for Day of Date of Exam: 11/07/23 Subjective Subjective: s/p appendectomy - medical consult Patient seen at bedside, no acute events overnight. Patient was supposed to be discharged yesterday but started having increased nausea and vomiting yesterday afternoon. He did eat some supper but states he was feeling sick. He had another episode this morning with vomiting. He just got IM Phenergan. He does not have IV access at this time. He has not eaten anything today. He denies abdominal pain. He had some diarrhea yesterday. Labs/imaging: -WBC 12, Hgb 11.1, Plt 298 BUN/Cr: 28/2.69 Plan: will start gentle hydration with NS, continue anti-emetics. Continue protonix. Follow surgery recommendations. Continue Ciprofloxacin. Will change diet to clears as tolerated. Monitor renal function. Replace electrolytes prn. Monitor AM labs/imaging. Past Medical Family Social History Allergies: Allergies No Known Allergies Allergy (Verified 11/02/23 20:07) Vital Signs and I&O's Vital Signs: Vital Signs Temperature 98.7 F Temperature 98.6 F Pulse Rate [Right Radial] 91 Pulse Rate [Right Radial] 87 Pulse Rate 86 Respiratory Rate 23 Respiratory Rate 19 Blood Pressure [Right Arm] 184/82 Blood Pressure [Right Arm] 168/88 Blood Pressure [Right Arm] 194/80 O2 Sat by Pulse Oximetry 97 O2 Sat by Pulse Oximetry 95 O2 Sat by Pulse Oximetry 95 Intake and Output: Intake & Output 11/04/23 11/05/23 11/06/23 11/07/23 23:59 23:59 23:59 23:59 Intake Total 2721 / 2721 3166 / 3166 2199 / 2199 510 / 510 Output Total 330 / 330 1305 / 1305 1905 / 1905 200 / 200 Balance 2391 / 2391 1861 / 1861 294 / 294 310 / 310 Physical Exam Oriented: Normal Eyes: Normal Throat: Normal Respiratory: Generalized and Diminished Cardiovascular: Normal Auscultation: Bowel Sounds: Normal Palpation: Normal Tenderness: Normal Skin: Normal Musculoskeletal: Normal Psychiatric: Normal Mood Description: Calm Affect: Normal Speech Pattern: Clear and Appropriate Laboratory and Diagnostics 11/07/23 05:35 11/07/23 05:35 Labs: 11/03/23 17:31 Blood Blood Culture - Preliminary 11/03/23 17:15 Blood Blood Culture - Preliminary Laboratory WBC 12.0 X10^3/uL (3.6-10.0) H 11/07/23 05:35 RBC 3.78 X10^6/uL (4.7-6.0) L 11/07/23 05:35 Hgb 11.1 g/dL (13.5-18.0) L 11/07/23 05:35 Hct 33.7 % (42.0-54.0) L 11/07/23 05:35 MCV 89.1 fL (80.0-100.0) 11/07/23 05:35 MCH 29.5 pg (27.0-34.0) 11/07/23 05:35 MCHC 33.0 g/dL (33.0-35.0) 11/07/23 05:35 RDW 15.2 % (11.6-16.5) 11/07/23 05:35 Plt Count 298 X10^3/uL (150.0-450.0) 11/07/23 05:35 Plt Count Comment Adequate (ADEQUATE) 11/07/23 05:35 MPV 7.9 fL (7.4-11.0) 11/07/23 05:35 Neut % (Auto) 78.9 % (42.0-75.0) H 11/07/23 05:35 Lymph % (Auto) 11.0 % (21.0-51.0) L 11/07/23 05:35 [place] % (Auto) 6.9 % (0.0-13.0) 11/07/23 05:35 Eos % (Auto) 2.3 % (0.9-2.9) 11/07/23 05:35 Baso % (Auto) 0.9 % (0.2-1.0) 11/07/23 05:35 Neut # (Auto) 9.5 x10^3/uL (2.2-4.8) H 11/07/23 05:35 Lymph # (Auto) 1.3 X10^3/uL (1.3-2.9) 11/07/23 05:35 [place] # (Auto) 0.8 x10^3/uL (0.3-0.8) 11/07/23 05:35 Eos # (Auto) 0.3 x10^3/uL (0.0-0.2) H 11/07/23 05:35 Baso # (Auto) 0.1 X10^3/uL (0.0-0.1) 11/07/23 05:35 Absolute Nucleated RBC 0.5 /100WBC 11/07/23 05:35 Total Counted 100 11/07/23 05:35 Neutrophils % (Manual) 80 % (39-76) H 11/07/23 05:35 Band Neutrophils % 4 % (0-10) 11/07/23 05:35 Lymphocytes % (Manual) 11 % (13-43) L 11/07/23 05:35 Monocytes % (Manual) 4 % (4-9) 11/07/23 05:35 Eosinophils % (Manual) 1 % (0-6) 11/07/23 05:35 Atypical Lymphocytes Few 11/06/23 05:30 Plt Clumps, EDTA Few 11/07/23 05:35 Plt Morphology Comment Normal (NORMAL) 11/07/23 05:35 RBC Morphology Normal (NORMAL) 11/07/23 05:35 Sodium 139 mmol/L (136-145) 11/07/23 05:35 Corrected Sodium 142 mmol/L (136-145) 11/07/23 05:35 Potassium 3.7 mmol/L (3.5-5.1) 11/07/23 05:35 Chloride 106 mmol/L (98-107) 11/07/23 05:35 Carbon Dioxide 21.6 mmol/L (21-32) 11/07/23 05:35 BUN 28 mg/dL (7-18) H 11/07/23 05:35 Creatinine 2.69 mg/dL (0.70-1.30) H 11/07/23 05:35 Est GFR (MDRD) Af Amer 29 (>60) L 11/07/23 05:35 Est GFR (MDRD) Non-Af 24 (>60) L 11/07/23 05:35 Glucose 231 mg/dL (65-99) H 11/07/23 05:35 POC Glucose (mg/dL) 212 mg/dL (65-99) H 11/07/23 05:10 Calcium 8.9 mg/dL (8.5-10.1) 11/07/23 05:35 Corrected Calcium 10.5 mg/dL (8.5-10.1) H 11/07/23 05:35 Magnesium 1.9 mg/dL (2.0-2.9) L 11/07/23 05:35 Total Bilirubin 0.10 mg/dL (0.2-1.0) L 11/07/23 05:35 AST 22 Units/L (15-37) 11/07/23 05:35 ALT 24 Units/L (12-78) 11/07/23 05:35 Alkaline Phosphatase 55 Units/L (46-116) 11/07/23 05:35 Total Protein 6.2 g/dL (6.4-8.2) L 11/07/23 05:35 Albumin 2.0 g/dL (3.4-5.0) L 11/07/23 05:35 Globulin 4.2 g/dL (2.5-4.5) 11/07/23 05:35 Albumin/Globulin Ratio 0.5 Ratio (1.1-2.1) L 11/07/23 05:35 Plan (1) Nausea & vomiting: Status: Acute Qualifiers: Vomiting type: unspecified Qualified Code(s): R11.2 - Nausea with vomiting, unspecified (2) Bronchitis: Status: Acute (3) Acute appendicitis: Status: Acute Qualifiers: Acute appendicitis type: unspecified acute appendicitis type Qualified Code(s): K35.80 - Unspecified acute appendicitis (4) Type 2 diabetes mellitus: Status: Acute Qualifiers: Diabetes mellitus complication status: with hyperglycemia Diabetes mellitus petroleum terminal plant operator insulin use: with petroleum terminal plant operator use Qualified Code(s): E11.65 - Type 2 diabetes mellitus with hyperglycemia; Z79.4 - extermination supervisor (current) use of insulin (5) Dehydration: Status: Acute
[2023-11-07] MEDS: NS 1,000 ML IV 1,000 ML IV SCH (15:00)
--- NOTE | 2023-11-07 15:08 | DR.PROGNOT ---
HOSPITAL PROGRESS NOTE Progress Note for Day of: Progress Note Date: 11/07/23 Chief Complaint Chief Complaint: Postoperative laparoscopic appendectomy day 3 Doing very well with less abdominal pain, vomited last night and still complaining of nausea. Patient had to be kept in the hospital because of the persistent nausea and vomiting WBC 16.3, normal electrolytes, BUN 37 and creatinine 3.45. Temperature 97.7 Abdomen is soft full with hypoactive bowel sounds. Difficult IV access, will try again to start peripheral IV for proper hydration. Past Medical Family Social History Allergies: Allergies No Known Allergies Allergy (Verified 11/02/23 20:07) Review Of Systems Changes in ROS: see HPI Vital Signs Vital Signs: Vital Signs Temperature 98.3 F Temperature 98.7 F Pulse Rate [Right Radial] 84 Pulse Rate [Right Radial] 91 Pulse Rate 86 Respiratory Rate 20 Respiratory Rate 23 Blood Pressure [Right Arm] 186/82 Blood Pressure [Right Arm] 184/82 O2 Sat by Pulse Oximetry 95 O2 Sat by Pulse Oximetry 97 O2 Sat by Pulse Oximetry 95 Physical Exam Oriented: Normal Eyes: Normal Throat: Normal Respiratory: Generalized and Diminished Cardiovascular: Normal GI:Auscultation: Normal GI:Palpation: Normal GI: Tenderness: Normal Skin: Normal Musculoskeletal: Normal Psychiatric: Normal Mood Description: Calm Affect: Normal Speech Pattern: Clear and Appropriate Laboratory and Diagnostics 11/07/23 05:35 11/07/23 05:35 Labs: 11/03/23 17:31 Blood Blood Culture - Preliminary 11/03/23 17:15 Blood Blood Culture - Preliminary Laboratory WBC 12.0 X10^3/uL (3.6-10.0) H 11/07/23 05:35 RBC 3.78 X10^6/uL (4.7-6.0) L 11/07/23 05:35 Hgb 11.1 g/dL (13.5-18.0) L 11/07/23 05:35 Hct 33.7 % (42.0-54.0) L 11/07/23 05:35 MCV 89.1 fL (80.0-100.0) 11/07/23 05:35 MCH 29.5 pg (27.0-34.0) 11/07/23 05:35 MCHC 33.0 g/dL (33.0-35.0) 11/07/23 05:35 RDW 15.2 % (11.6-16.5) 11/07/23 05:35 Plt Count 298 X10^3/uL (150.0-450.0) 11/07/23 05:35 Plt Count Comment Adequate (ADEQUATE) 11/07/23 05:35 MPV 7.9 fL (7.4-11.0) 11/07/23 05:35 Neut % (Auto) 78.9 % (42.0-75.0) H 11/07/23 05:35 Lymph % (Auto) 11.0 % (21.0-51.0) L 11/07/23 05:35 [place] % (Auto) 6.9 % (0.0-13.0) 11/07/23 05:35 Eos % (Auto) 2.3 % (0.9-2.9) 11/07/23 05:35 Baso % (Auto) 0.9 % (0.2-1.0) 11/07/23 05:35 Neut # (Auto) 9.5 x10^3/uL (2.2-4.8) H 11/07/23 05:35 Lymph # (Auto) 1.3 X10^3/uL (1.3-2.9) 11/07/23 05:35 [place] # (Auto) 0.8 x10^3/uL (0.3-0.8) 11/07/23 05:35 Eos # (Auto) 0.3 x10^3/uL (0.0-0.2) H 11/07/23 05:35 Baso # (Auto) 0.1 X10^3/uL (0.0-0.1) 11/07/23 05:35 Absolute Nucleated RBC 0.5 /100WBC 11/07/23 05:35 Total Counted 100 11/07/23 05:35 Neutrophils % (Manual) 80 % (39-76) H 11/07/23 05:35 Band Neutrophils % 4 % (0-10) 11/07/23 05:35 Lymphocytes % (Manual) 11 % (13-43) L 11/07/23 05:35 Monocytes % (Manual) 4 % (4-9) 11/07/23 05:35 Eosinophils % (Manual) 1 % (0-6) 11/07/23 05:35 Atypical Lymphocytes Few 11/06/23 05:30 Plt Clumps, EDTA Few 11/07/23 05:35 Plt Morphology Comment Normal (NORMAL) 11/07/23 05:35 RBC Morphology Normal (NORMAL) 11/07/23 05:35 Sodium 139 mmol/L (136-145) 11/07/23 05:35 Corrected Sodium 142 mmol/L (136-145) 11/07/23 05:35 Potassium 3.7 mmol/L (3.5-5.1) 11/07/23 05:35 Chloride 106 mmol/L (98-107) 11/07/23 05:35 Carbon Dioxide 21.6 mmol/L (21-32) 11/07/23 05:35 BUN 28 mg/dL (7-18) H 11/07/23 05:35 Creatinine 2.69 mg/dL (0.70-1.30) H 11/07/23 05:35 Est GFR (MDRD) Af Amer 29 (>60) L 11/07/23 05:35 Est GFR (MDRD) Non-Af 24 (>60) L 11/07/23 05:35 Glucose 231 mg/dL (65-99) H 11/07/23 05:35 POC Glucose (mg/dL) 228 mg/dL (65-99) H 11/07/23 12:25 Calcium 8.9 mg/dL (8.5-10.1) 11/07/23 05:35 Corrected Calcium 10.5 mg/dL (8.5-10.1) H 11/07/23 05:35 Magnesium 1.9 mg/dL (2.0-2.9) L 11/07/23 05:35 Total Bilirubin 0.10 mg/dL (0.2-1.0) L 11/07/23 05:35 AST 22 Units/L (15-37) 11/07/23 05:35 ALT 24 Units/L (12-78) 11/07/23 05:35 Alkaline Phosphatase 55 Units/L (46-116) 11/07/23 05:35 Total Protein 6.2 g/dL (6.4-8.2) L 11/07/23 05:35 Albumin 2.0 g/dL (3.4-5.0) L 11/07/23 05:35 Globulin 4.2 g/dL (2.5-4.5) 11/07/23 05:35 Albumin/Globulin Ratio 0.5 Ratio (1.1-2.1) L 11/07/23 05:35 Assessment and Plan 1: Acute gangrenous appendicitis with perforation and abscess formation right lower quadrant, status post appendectomy and drainage. Same postoperative care, out of bed, incentive spirometer, DVT prophylaxis, IV fluid and IV antibiotics. soft diet ..
--- NOTE | 2023-11-07 18:58 | EKG ---
Test Reason : BP 190/88 Blood Pressure : */* mmHG Vent. Rate : 74 BPM Atrial Rate : 74 BPM P-R Int : 168 ms QRS Dur : 136 ms QT Int : 428 ms P-R-T Axes : 39 -24 -3 degrees QTc Int : 475 ms Normal sinus rhythm Right bundle branch block Abnormal ECG When compared with ECG of 03-NOV-2023 07:40, No significant change was found Confirmed by Wilder Parekh MD ([id number]) on 11/08/2023 5:49:20 AM Referred By: Confirmed By: Wilder Parekh MD
[2023-11-07] MEDS: CATAPRES TAB 0.1 MG PO ONE (19:18)
[2023-11-08] MEDS: CATAPRES TAB 0.1 MG PO ONE (04:05)
[2023-11-08 06:28] LABS: BASOPHILS % (AUTO) 0.5 % (0.2-1.0); EOSINOPHILS # (AUTO) 0.3 x10^3/uL (0.0-0.2); EOSINOPHILS % (AUTO) 3.2 % (0.9-2.9); HEMOGLOBIN 10.6 g/dL (13.5-18.0); LYMPHOCYTES # (AUTO) 1.4 X10^3/uL (1.3-2.9); LYMPHOCYTES % (AUTO) 15.7 % (21.0-51.0); MEAN CORPUSCULAR HEMOGLOBIN 29.5 pg (27.0-34.0); MEAN CORPUSCULAR HGB CONC 33.1 g/dL (33.0-35.0); MEAN PLATELET VOLUME 7.3 fL (7.4-11.0); MONOCYTES # (AUTO) 0.6 x10^3/uL (0.3-0.8); MONOCYTES % (AUTO) 7.5 % (0.0-13.0); NEUTROPHILS # (AUTO) 6.4 x10^3/uL (2.2-4.8); NEUTROPHILS % (AUTO) 73.1 % (42.0-75.0); PLATELET COUNT 288 X10^3/uL (150.0-450.0); RED CELL DISTRIBUTION WIDTH 15.1 % (11.6-16.5); WHITE BLOOD COUNT 8.7 X10^3/uL (3.6-10.0)
[2023-11-08 06:40] LABS: ALBUMIN 1.8 g/dL (3.4-5.0); CALCIUM 8.5 mg/dL (8.5-10.1); CARBON DIOXIDE 23.9 mmol/L (21-32); COR CA(FOR HYPOALB) 10.3 mg/dL (8.5-10.1); CREATININE 2.39 mg/dL (0.70-1.30); MAGNESIUM 1.9 mg/dL (2.0-2.9); POTASSIUM 3.6 mmol/L (3.5-5.1); TOTAL PROTEIN 5.7 g/dL (6.4-8.2)
[2023-11-08] MEDS ORDERED: CONSULT PHARMACY - POTASSIUM & MAGNESIUM XX SCH (07:00)
[2023-11-08 07:17] LABS: BAND NEUTROPHILS % 2 % (0-10); BASOPHILS % (MANUAL) 1 % (0-1); PLATELET MORPHOLOGY COMMENT NORMAL (NORMAL)
[2023-11-08] MEDS: MAG-OX TAB PO SCH (08:42)
[2023-11-08] MEDS: KLOR-CON PO SCH (08:43)
--- NOTE | 2023-11-08 09:38 | DR.PROGNOT ---
HOSPITAL PROGRESS NOTE Progress Note for Day of: Progress Note Date: 11/08/23 Chief Complaint Chief Complaint: Postoperative laparoscopic appendectomy day 4 Doing very well with less abdominal pain ,no more vomiting .. having loose watery BM for the past two days . WBC 8.8 , normal electrolytes, BUN 37 , improving Glucose Temperature 97.7 Abdomen is soft full with hypoactive bowel sounds. Past Medical Family Social History Allergies: Allergies No Known Allergies Allergy (Verified 11/02/23 20:07) Review Of Systems Changes in ROS: see HPI Vital Signs Vital Signs: Vital Signs Temperature 97.4 F Temperature 98.5 F Pulse Rate [Right Radial] 70 Pulse Rate [Right Radial] 71 Pulse Rate 71 Respiratory Rate 19 Respiratory Rate 18 Blood Pressure [Right Arm] 202/80 Blood Pressure [Left Arm] 170/85 Blood Pressure [Left Arm] 164/80 Blood Pressure [Left Arm] 182/84 Blood Pressure [Left Arm] 186/82 Blood Pressure [Left Arm] 190/84 Blood Pressure [Left Arm] 194/86 Blood Pressure [Left Arm] 198/86 Blood Pressure [Left Arm] 217/94 O2 Sat by Pulse Oximetry 97 O2 Sat by Pulse Oximetry 95 O2 Sat by Pulse Oximetry 95 Physical Exam Oriented: Normal Eyes: Normal Throat: Normal Respiratory: Generalized and Diminished Cardiovascular: Normal GI:Auscultation: Normal GI:Palpation: Normal GI: Tenderness: Normal Skin: Normal Musculoskeletal: Normal Psychiatric: Normal Mood Description: Calm Affect: Normal Speech Pattern: Clear and Appropriate Laboratory and Diagnostics 11/08/23 05:23 11/08/23 05:23 Labs: 11/03/23 17:31 Blood Blood Culture - Preliminary 11/03/23 17:15 Blood Blood Culture - Preliminary Laboratory WBC 8.7 X10^3/uL (3.6-10.0) 11/08/23 05:23 RBC 3.60 X10^6/uL (4.7-6.0) L 11/08/23 05:23 Hgb 10.6 g/dL (13.5-18.0) L 11/08/23 05:23 Hct 32.0 % (42.0-54.0) L 11/08/23 05:23 MCV 89.0 fL (80.0-100.0) 11/08/23 05:23 MCH 29.5 pg (27.0-34.0) 11/08/23 05:23 MCHC 33.1 g/dL (33.0-35.0) 11/08/23 05:23 RDW 15.1 % (11.6-16.5) 11/08/23 05:23 Plt Count 288 X10^3/uL (150.0-450.0) 11/08/23 05:23 Plt Count Comment Adequate (ADEQUATE) 11/08/23 05:23 MPV 7.3 fL (7.4-11.0) L 11/08/23 05:23 Neut % (Auto) 73.1 % (42.0-75.0) 11/08/23 05:23 Lymph % (Auto) 15.7 % (21.0-51.0) L 11/08/23 05:23 [place] % (Auto) 7.5 % (0.0-13.0) 11/08/23 05:23 Eos % (Auto) 3.2 % (0.9-2.9) H 11/08/23 05:23 Baso % (Auto) 0.5 % (0.2-1.0) 11/08/23 05:23 Neut # (Auto) 6.4 x10^3/uL (2.2-4.8) H 11/08/23 05:23 Lymph # (Auto) 1.4 X10^3/uL (1.3-2.9) 11/08/23 05:23 [place] # (Auto) 0.6 x10^3/uL (0.3-0.8) 11/08/23 05:23 Eos # (Auto) 0.3 x10^3/uL (0.0-0.2) H 11/08/23 05:23 Baso # (Auto) 0.0 X10^3/uL (0.0-0.1) 11/08/23 05:23 Absolute Nucleated RBC 0.1 /100WBC 11/08/23 05:23 Total Counted 100 11/08/23 05:23 Neutrophils % (Manual) 65 % (39-76) 11/08/23 05:23 Band Neutrophils % 2 % (0-10) 11/08/23 05:23 Lymphocytes % (Manual) 22 % (13-43) 11/08/23 05:23 Monocytes % (Manual) 5 % (4-9) 11/08/23 05:23 Eosinophils % (Manual) 5 % (0-6) 11/08/23 05:23 Basophils % (Manual) 1 % (0-1) 11/08/23 05:23 Atypical Lymphocytes Few 11/06/23 05:30 Plt Clumps, EDTA Few 11/07/23 05:35 Plt Morphology Comment Normal (NORMAL) 11/08/23 05:23 RBC Morphology Normal (NORMAL) 11/08/23 05:23 Sodium 139 mmol/L (136-145) 11/08/23 05:23 Corrected Sodium 141 mmol/L (136-145) 11/08/23 05:23 Potassium 3.6 mmol/L (3.5-5.1) 11/08/23 05:23 Chloride 105 mmol/L (98-107) 11/08/23 05:23 Carbon Dioxide 23.9 mmol/L (21-32) 11/08/23 05:23 BUN 25 mg/dL (7-18) H 11/08/23 05:23 Creatinine 2.39 mg/dL (0.70-1.30) H 11/08/23 05:23 Est GFR (MDRD) Af Amer 34 (>60) L 11/08/23 05:23 Est GFR (MDRD) Non-Af 28 (>60) L 11/08/23 05:23 Glucose 175 mg/dL (65-99) H 11/08/23 05:23 POC Glucose (mg/dL) 208 mg/dL (65-99) H 11/08/23 06:16 Calcium 8.5 mg/dL (8.5-10.1) 11/08/23 05:23 Corrected Calcium 10.3 mg/dL (8.5-10.1) H 11/08/23 05:23 Magnesium 1.9 mg/dL (2.0-2.9) L 11/08/23 05:23 Total Bilirubin 0.10 mg/dL (0.2-1.0) L 11/08/23 05:23 AST 29 Units/L (15-37) 11/08/23 05:23 ALT 28 Units/L (12-78) 11/08/23 05:23 Alkaline Phosphatase 49 Units/L (46-116) 07/04/24 05:23 Total Protein 5.7 g/dL (6.4-8.2) L 11/08/23 05:23 Albumin 1.8 g/dL (3.4-5.0) L 11/08/23 05:23 Globulin 3.9 g/dL (2.5-4.5) 11/08/23 05:23 Albumin/Globulin Ratio 0.5 Ratio (1.1-2.1) L 11/08/23 05:23 Assessment and Plan 1: Acute gangrenous appendicitis with perforation and abscess formation right lower quadrant, status post appendectomy and drainage. Same postoperative care, out of bed, incentive spirometer, DVT prophylaxis, IV fluid and IV antibiotics. soft diet ..
[2023-11-08] MEDS: LOPRESSOR TAB 50 MG PO SCH (10:11)
[2023-11-08] MEDS: MICARDIS PO SCH (10:13)
[2023-11-08 13:26] VITALS: RESP 20
--- NOTE | 2023-11-08 17:37 | RAD ---
EXAM:ACUTE ABDOMEN SERI ESHISTORY:ABD DISTENTION;COMPARISON:None available.TECHNICAL QUALITY: SatisfactoryTECHNIQUE:AP supine and upright abdomen with AP chest x-ray views .FINDINGS:Right lung base is clear. There is some stranding in the left base suggestive of atelectasis. There is no free air under the diaphragm. There is gas in the stomach. There is minimal gas in the colon. No gas is seen in the small bowel. No urinary tract calcifications are identified.IMPRESSION:Gas-filled stomach. Question gastroparesis or gastric ileus.THIS IS AN ELECTRONICALLY VERIFIED FINAL REPORT11/08/2023 5:33 PM - Electronically signed by Esteban Díaz MD
[2023-11-08] MEDS: SNACK - Diabetic Appropriate PO SCH (20:27)
[2023-11-08] MEDS: LANTUS SC SCH (21:23)
[2023-11-09 06:04] LABS: BASOPHILS # (AUTO) 0.1 X10^3/uL (0.0-0.1); BASOPHILS % (AUTO) 0.5 % (0.2-1.0); EOSINOPHILS # (AUTO) 0.3 x10^3/uL (0.0-0.2); EOSINOPHILS % (AUTO) 3.2 % (0.9-2.9); HEMATOCRIT 31.3 % (42.0-54.0); HEMOGLOBIN 10.4 g/dL (13.5-18.0); LYMPHOCYTES # (AUTO) 1.3 X10^3/uL (1.3-2.9); LYMPHOCYTES % (AUTO) 13.8 % (21.0-51.0); MEAN CORPUSCULAR HEMOGLOBIN 29.3 pg (27.0-34.0); MEAN CORPUSCULAR HGB CONC 33.1 g/dL (33.0-35.0); MEAN CORPUSCULAR VOLUME 88.7 fL (80.0-100.0); MEAN PLATELET VOLUME 7.4 fL (7.4-11.0); MONOCYTES # (AUTO) 0.4 x10^3/uL (0.3-0.8); MONOCYTES % (AUTO) 4.8 % (0.0-13.0); NEUTROPHILS # (AUTO) 7.2 x10^3/uL (2.2-4.8); NEUTROPHILS % (AUTO) 77.7 % (42.0-75.0); PLATELET COUNT 283 X10^3/uL (150.0-450.0); RED BLOOD COUNT 3.53 X10^6/uL (4.7-6.0); RED CELL DISTRIBUTION WIDTH 15.1 % (11.6-16.5); WHITE BLOOD COUNT 9.3 X10^3/uL (3.6-10.0)
[2023-11-09 06:21] LABS: ALBUMIN 1.8 g/dL (3.4-5.0); CALCIUM 8.3 mg/dL (8.5-10.1); CARBON DIOXIDE 24.2 mmol/L (21-32); COR CA(FOR HYPOALB) 10.1 mg/dL (8.5-10.1); CREATININE 2.32 mg/dL (0.70-1.30); MAGNESIUM 1.8 mg/dL (2.0-2.9); POTASSIUM 3.8 mmol/L (3.5-5.1); TOTAL PROTEIN 5.6 g/dL (6.4-8.2)
[2023-11-09 09:32] VITALS: BP 170/80; TEMP 98.1
[2023-11-09 11:27] VITALS: PULSE 73; O2SAT 96
== END 2023-11-09 11:35 | disposition home or self-care (01) | DRG 399 ==
LOC: EDBD → MED/SURG 18:47
PROVIDERS: ADMIT Surgery; ATTEND Surgery
PROC: APPYLAP (ICD-10-PCS; 2023-11-03 08:00)